=== PATIENT | female | born 1960 | race Caucasian/White ===

== ENCOUNTER 2017-07-22 19:41 | Inpatient (IN) ==
[2017-07-22] MEDS ORDERED: Ondansetron 4 MG/2 ML VIAL IVP ONE (20:19)
[2017-07-22] MEDS ORDERED: Piperacillin/Tazobactam 3.375 GM in D5% in Water (Mini-Bag+) 100 ML IVPB ONE (20:19)
[2017-07-22] MEDS ORDERED: *HR* HYDROmorphone (PF) 1 MG/ML SYRINGE IVP ONE (20:23)
--- NOTE | 2017-07-22 20:24 | Emergency Department Note ---
Disposition Clinical Impression: Nephrolithiasis, Pyelonephritis, Emphysematous pyelonephritis of left kidney, Breast lesion Disposition: Admitted As Inpatient Condition: Good General Adult HPI - General Chief complaint: ED Abdominal Pain Stated complaint: "Seen for UTI 07/21/17 Now Very Nauseated" Time Seen by Provider: 07/22/17 20:10 Source: patient, family Limitations: no limitations Nursing Notes Reviewed: Yes Vital Signs Reviewed: Yes - History of Present Illness HPI Narrative: 56-year-old female who denies any medical problems. She presented to the emergency Department yesterday due to left flank pain. She was diagnosed with pyelonephritis and was discharged home with antibiotics and nausea medication. She reports her nausea has substantially increased. She is unable to keep down her medications. She also states that she continues to have pain in the left flank. She also admits to rigors overnight. Pain Scale: 5 Consistency: constant Improves with: nothing Worsens with: nothing Associated symptoms: Reports: denies other symptoms Treatments Prior to Arrival: none - Related Data Previous Rx's Medication Instructions Recorded DiphenhydraMINE [Benadryl] 25 mg PO Q6HR PRN #20 capsule 02/21/16 methylPREDNISolone [Medrol] 4 mg PO TAPER #21 tablet 02/21/16 Amoxicillin 875 mg PO BID #20 tablet 01/28/17 Sulfamethoxazole/Trimeth DS 1 each PO BID 14 Days tablet 07/22/17 [Bactrim DS] Allergies Allergy/AdvReac Type Severity Reaction Status Date / Time No Known Allergies Allergy Verified 07/22/17 19:46 All systems ED: reviewed and negative except as stated. Constitutional: Reports: chills Cardiovascular: Denies: chest pain Respiratory: Denies: cough Gastrointestinal: Reports: nausea, vomiting Musculoskeletal: Reports: back pain Integumentary: Denies: rash Endocrine: Reports: fatigue Past Medical History - Past Medical History Medical history: Reports: no medical history Psychiatric history: Reports: no psych history LAUNDRY AID history: Reports: non-contributory - Social History Smoking Status: Never smoker Smokeless Tobacco Status: No Alcohol use: Reports: none Drug use: Reports: none Physical Exam - General Limitations: no limitations General appearance: alert, in no apparent distress - Head Head exam: atraumatic - Eye Eye exam: Present: normal appearance, PERRL - ENT ENT exam: normal exam, normal oropharynx - Neck Neck exam: Present: normal inspection - Chest Chest inspection: Present: normal inspection - Respiratory Respiratory exam: Present: normal lung sounds bilaterally. Absent: respiratory distress - Cardiovascular Cardiovascular exam: Present: regular rate, normal rhythm - Abdominal Exam Abdominal exam: Present: soft, tenderness (left abdomen and left flank). Absent : guarding, rebound - Extremities Exam Extremities exam: Present: normal inspection - Neurological Exam Neurological exam: Present: alert, oriented X3 - Psychiatric Psychiatric exam: Present: normal affect, normal mood - Skin Skin exam: Present: warm, dry Course Course Narrative: We will obtain a CT scan to rule out a septic stone and to look for abscess formation. I will empirically treat with Zosyn. CT scan shows a stone with emphysematous pyelitis. She has received zosyn and levaquin. I called urology Dr Lang and he agrees with the antibiotic choice and will accept the patient to his service. He will assume care for final management of this patient. After starting IV fluids and antibiotics her HR has improved to 97 from 110. BP is still stable. Lactate is not elevated. Vital Signs Temperature 99.2 F 07/22/17 19:46 Pulse Rate 110 07/22/17 19:46 Respiratory Rate 16 07/22/17 19:46 Blood Pressure 126/83 07/22/17 19:46 O2 Sat by Pulse Oximetry 97 07/22/17 19:46 Temperature 99.2 F 07/22/17 19:46 Pulse Rate 95 07/22/17 21:21 Respiratory Rate 16 07/22/17 21:21 Blood Pressure 121/79 07/22/17 21:21 O2 Sat by Pulse Oximetry 95 07/22/17 21:21 Oxygen Delivery Oxygen Delivery Nasal Cannula Medical Decision Making - [facility] Narrative Medical decision making narrative: Pt will need to have her left breast lesion that was identified on CT evaluated at some point as well. we informed the patient of this - Medical Records Medical records reviewed: Yes I reviewed the patient's medical records. - Lab Data Result diagrams: 07/22/17 20:34 07/22/17 20:34 Critical Care Time Critical Care Time: Yes Total Critical Care Time: 35 Attestation: Critical care time of 35 min spent in medical management of pt's condition and sepsis. consult with urology as well
[2017-07-22] MEDS ORDERED: Levofloxacin 750 MG/150 ML 750 MG/150 ML BAG IVPB ONE (20:28)
[2017-07-22] MEDS ORDERED: 0.9 % Sodium Chloride 1,000 ML IVC SCH ×2 (20:30→21:45)
--- NOTE | 2017-07-22 20:43 | Emergency Department Note ---
START Narrative - START START: I examined this patient and my medical decision-making was reviewed with the Resident Physician. I agree with the documented findings, disposition and treatment plan as described except to the extent set forth below. Patient has failed outpatient treatment for pyelonephritis. She is unable to keep her medications down that she has had profuse nausea and vomiting. Patient will need to be admitted for IV antibiotics. I do not a CT scan to evaluate for a possible infected stone as she does have a history of a kidney stone.
[2017-07-22 20:46] LABS: Basophils % 0.1 %; Hematocrit 36.2 % (35.3-44.9); Hemoglobin 11.3 g/dL (11.5-15.4); Immature Granulocytes % 0.8 % (0-4); Lymphocytes # 1.5 K/mcL (0.6-4.6); Lymphocytes % 8.9 %; Mean Corpuscular HGB Conc 31.2 g/dL (31.6-35.5); Mean Corpuscular Hemoglobin 27.1 pg (28.0-33.3); Mean Corpuscular Volume 86.8 fL (83.0-100.0); Monocytes % 5.8 %; Neutrophils # 14.5 K/mcL (1.6-8.9); Platelet Count 251 K/mcL (140-400); Red Blood Count 4.17 M/mcL (3.82-4.97); Red Cell Distribution Width 15.3 % (11.5-14.5); Segmented Neutrophils % 84.4 %
[2017-07-22 21:01] LABS: Alanine Aminotransferase 26 Units/L (0-55); Albumin 3.3 g/dL (3.5-5.0); Albumin/Globulin Ratio 0.7 (1.1-2.2); Alkaline Phosphatase 113 Units/L (38-126); Aspartate Amino Transferase 26 Units/L (5-34); BUN/Creatinine Ratio 20 (6-26); Bilirubin,Direct 0.4 mg/dL (0.0-0.5); Bilirubin,Indirect 0.4 mg/dL (0.0-1.2); Blood Urea Nitrogen 17 mg/dL (7-20); Calcium 9.2 mg/dL (8.6-10.8); Carbon Dioxide 28 mEq/L (19-29); Chloride 101 mEq/L (98-109); Globulin 4.9 g/dL (2.4-3.5); Glucose 139 mg/dL (70-99); Osmolality,Calculated 288 (280-300); Potassium 3.9 mEq/L (3.5-4.5); Sodium 137 mEq/L (136-145); Total Protein 8.2 g/dL (6.0-8.3); eGFR For African Americans > 60 (> 60); eGFR For Non-African Americans > 60 (> 60)
[2017-07-22 21:02] LABS: Bilirubin,Total 0.8 mg/dL (0.2-1.2); Lipase < 10 Units/L (8-78)
[2017-07-22] MEDS ORDERED: *HR* Promethazine 25 MG/ML VIAL IVP PRN (21:41)
[2017-07-22] MEDS ORDERED: *HR* Morphine 2 MG/ML SYRINGE IVP PRN (21:41)
[2017-07-22] MEDS ORDERED: Naloxone 0.4 MG/ML INJ IVP PRN (21:41)
[2017-07-22] MEDS ORDERED: Ondansetron 4 MG/2 ML VIAL IVP PRN (21:41)
[2017-07-22] MEDS ORDERED: Ketorolac 15 MG/ML VIAL IVP PRN (21:41)
[2017-07-22] MEDS ORDERED: Piperacillin/Tazobactam 3.375 GM in D5% in Water 100 ML IVPB ONE (21:47)
--- NOTE | 2017-07-22 21:51 | Urology History & Physical ---
Date of Encounter: 07/22/17 Time of Encounter: 21:49 Assessment and Plan (1) Ureteral stone with hydronephrosis Current Visit: Yes Status: Acute Patient requires cystoscopy and ureteral stent placement along with culture specific antibiotics. Stent will be placed promptly during this hospital admission. We'll watch patient after the stent is placed to verify stability. She will require staged outpatient management of the stone. Blood and urine culture sent. (2) Emphysematous pyelonephritis of left kidney Current Visit: Yes Status: Acute Should resolve with stent placement and appropriate antibiotics History of Present Illness Chief complaint: Pain left flank pain HPI: Ms. Kauffman is a 56 year old female presents the emergency room with acute left flank pain and feeling of unwell. CT scan reveals Re- demonstration of obstructing stone within the left proximal collecting system at the ureteropelvic junction which today measures 1.4 cm. There is surrounding perinephric stranding. Additionally, a few locules of gas are identified within the proximal collecting system on the left compatible with emphysematous pyelitis. Past Med Surg Social Fam HX - Past Medical History Medical history: no medical history Psychiatric history: no psych history - Social History Smoking Status: Never smoker Smokeless Tobacco Status: No Alcohol use: none Drug use: none Medications and Allergies Sulfamethoxazole/Trimeth DS [Bactrim DS] 1 each PO BID 14 Days tablet 07/22/17 [Rx] 3 Allergy/AdvReac Type Severity Reaction Status Date / Time No Known Allergies Allergy Verified 07/22/17 21:37 Review of Systems - Constitutional fatigue, fever(s), malaise - EENT Nose, mouth and throat: no dizziness - Cardiovascular no chest pain - Respiratory no cough - Gastrointestinal abdominal pain, nausea - Genitourinary Genitourinary: flank pain - Musculoskeletal back pain - Integumentary erythema - Neurological no confusion - Psychiatric no anxiety - Hematologic/Lymphatic no easy bleeding - Allergic/Immunologic no throat swelling Exam Initial Vital Signs Temp Pulse Resp BP Pulse Ox 99.2 F 110 16 126/83 97 07/22/17 19:46 07/22/17 19:46 07/22/17 19:46 07/22/17 19:46 07/22/17 19:46 - General physical appearance Present: well developed, no distress - Eyes Present: PERRL - ENT Present: normal nares - Neck Present: no masses - Respiratory Present: normal respiratory effort - Cardiovascular Cardiovascular exam IM: RRR - Abdomen Abdomen: Present: soft - Integumentary Present: no rash - Neurologic Present: normal coordination. Absent: disoriented, confused - Musculoskeletal Present: normal gait - Additional Findings no CVA tenderness Urology Results - Labs 07/22/17 20:34 07/22/17 20:34 Abnormal lab results WBC 17.2 K/mcL (4.3-11.1) H 07/22/17 20:34 Hgb 11.3 g/dL (11.5-15.4) L 07/22/17 20:34 MCH 27.1 pg (28.0-33.3) L 07/22/17 20:34 MCHC 31.2 g/dL (31.6-35.5) L 07/22/17 20:34 RDW 15.3 % (11.5-14.5) H 07/22/17 20:34 Neutrophils # 14.5 K/mcL (1.6-8.9) H 07/22/17 20:34 Glucose 139 mg/dL (70-99) H 07/22/17 20:34 Albumin 3.3 g/dL (3.5-5.0) L 07/22/17 20:34 Globulin 4.9 g/dL (2.4-3.5) H 07/22/17 20:34 Albumin/Globulin Ratio 0.7 (1.1-2.2) L 07/22/17 20:34 All other labs normal.
[2017-07-22] MEDS ORDERED: Piperacillin/Tazobactam 3.375 GM in D5% in Water 50 ML IVPB ONE (22:15)
[2017-07-23] MEDS: *HR* HYDROcodone/Acet 5/325 mg TABLET PO SCH ×4 (00:35→12:00)
[2017-07-23] MEDS ORDERED: Piperacillin/Tazobactam 3.375 GM in D5% in Water 50 ML IVPB ONE (03:00)
[2017-07-23 03:50] LABS: BUN/Creatinine Ratio 18 (6-26); Blood Urea Nitrogen 15 mg/dL (7-20); Calcium 8.6 mg/dL (8.6-10.8); Carbon Dioxide 27 mEq/L (19-29); Chloride 102 mEq/L (98-109); Glucose 144 mg/dL (70-99); Osmolality,Calculated 285 (280-300); Potassium 3.9 mEq/L (3.5-4.5); Sodium 136 mEq/L (136-145); eGFR For African Americans > 60 (> 60); eGFR For Non-African Americans > 60 (> 60)
[2017-07-23 04:04] LABS: Basophils % 0.1 %; Eosinophils % 0.1 %; Hematocrit 33.6 % (35.3-44.9); Hemoglobin 10.3 g/dL (11.5-15.4); Immature Granulocytes % 0.6 % (0-4); Lymphocytes # 1.6 K/mcL (0.6-4.6); Lymphocytes % 11.4 %; Mean Corpuscular HGB Conc 30.7 g/dL (31.6-35.5); Mean Platelet Volume 10.3 fL (9.4-12.4); Monocytes # 0.8 K/mcL (0.0-1.3); Monocytes % 5.5 %; Neutrophils # 11.7 K/mcL (1.6-8.9); Platelet Count 212 K/mcL (140-400); Red Blood Count 3.82 M/mcL (3.82-4.97); Red Cell Distribution Width 15.6 % (11.5-14.5); Segmented Neutrophils % 82.3 %
[2017-07-23] MEDS ORDERED: cefTRIAXone 1,000 MG in Water for inj. (sterile) 10 ML IVP SCH (09:00)
[2017-07-23] MEDS ORDERED: Dexamethasone 4 MG/ML VIAL ONE (15:50)
[2017-07-23] MEDS ORDERED: *HR* Propofol 200 MG/20 ML VIAL IVP ONE (15:50)
[2017-07-23] MEDS ORDERED: Lidocaine -MPF 2% 2 ML VIAL ONE (15:50)
[2017-07-23] MEDS ORDERED: *HR* FentaNYL (PF) 100 MCG/2 ML VIAL ONE (15:50)
[2017-07-23] MEDS ORDERED: Ondansetron 4 MG/2 ML VIAL ONE (15:50)
[2017-07-23] MEDS ORDERED: *HR* Promethazine 25 MG/ML VIAL IVP PRN ×3 (15:52→17:20)
[2017-07-23] MEDS ORDERED: *HR* HYDROmorphone (PF) 1 MG/ML SYRINGE IVP PRN (15:52)
--- NOTE | 2017-07-23 16:02 | Anesthesia Evaluation PreOp ---
Date of Encounter: 07/23/17 Time of Encounter: 16:00 - Past History Planned Operation: Left retrograde pyelogram, cystoscopy Cardiac History: Denies any Significant Hx Pulmonary History: Denies Any Significant HX BUSINESS COORDINATOR History: Denies Any Significant HX Other Medical History: Renal (stones) Anesthesia History: No Prior Anesthetic Complications Alcohol Use: none Drug use: none Medications and Allergies Sulfamethoxazole/Trimeth DS [Bactrim DS] 1 each PO BID 14 Days tablet 07/22/17 [Rx] 3 Allergy/AdvReac Type Severity Reaction Status Date / Time No Known Allergies Allergy Verified 07/22/17 21:37 - Meds/Allergy Pre-op Review Medications Reviewed: Yes Allergies Reviewed: Yes Beta Blockers on Current Med List: No Anesthesia Results - Labs 07/23/17 03:02 07/23/17 03:02 Anesthesia Exam Last Vital Signs Temp 98.0 F 07/23/17 10:51 Pulse 95 07/23/17 15:42 Resp 16 07/23/17 15:42 BP 106/67 07/23/17 15:42 Pulse Ox 94 07/23/17 15:42 Weight: 104 kg NPO (# of Hours): > 8 hrs - HEENT Pupil (Motor): Pupils equal, EOMI Mallampati: III Teeth: Edentulous Oral Opening: Greater than 3 - BUSINESS COORDINATOR LOC: Oriented - Cardiac Rhythm: Regular Murmur: None - Pulmonary Breath Sounds: bilateral Clear Respiratory Effort: Symmetrical Anesthesia Assess/Plan ASA Score: 2 Modified Harrison Scale for Level of Consciousness: Cooperative, oriented, and tranquil Anesthetic Plan: General Monitoring Plan: Standard Monitors Recovery Plan: PACU
[2017-07-23] MEDS ORDERED: 0.9 % Sodium Chloride 1,000 ML IVC SCH ×2 (16:22→17:20)
[2017-07-23] MEDS ORDERED: *HR* Morphine 2 MG/ML SYRINGE IVP PRN ×2 (16:22→17:20)
[2017-07-23] MEDS ORDERED: Ondansetron 4 MG/2 ML VIAL IVP PRN ×2 (16:22→17:20)
[2017-07-23] MEDS ORDERED: Naloxone 0.4 MG/ML INJ IVP PRN ×2 (16:22→17:20)
[2017-07-23] MEDS ORDERED: Ketorolac 15 MG/ML VIAL IVP PRN ×2 (16:22→17:20)
--- NOTE | 2017-07-23 16:35 | Operative Note ---
Date of procedure: 07/23/17 Pre-op diagnosis: left UPJ stone and UTI Post-op diagnosis: same Procedure: cystoscopy left retrograde pyelogram left JJ stent Anesthesia: GETA Surgeon: Marcos Lang Estimated blood loss (cc): 0 Specimen: none Condition: stable Disposition: PACU Procedure in Detail: PROCEDURE IN DETAIL: Patient was taken back to the operating room, positioned supine on the operating table. Anesthesia was applied without complication. They were moved into dorsal lithotomy. Careful attention was maintained to cushion all pressure points for patient's safety. They were prepped and draped in sterile fashion. Time-out was performed with the proper patient and procedure. A 21-Azerbaijani rigid cystoscope was inserted into the bladder without difficulty. Systematic examination of bladder revealed no abnormalities. She did have a large cystocele. Left ureteral orifice was cannulated using a 5 Azerbaijani ureteral catheter. Large filling defect in the renal pelvis near the UPJ was noted. Zip wire was placed and a 6 x 26 stent was placed without complication. Minimal purulence was seen draining from the left kidney. Bladder was drained.
[2017-07-23] MEDS ORDERED: *HR* HYDROcodone/Acet 5/325 mg TABLET PO SCH (20:00)
[2017-07-23] MEDS ORDERED: *HR* HYDROcodone/Acet 5/325 mg TABLET PO PRN (20:00)
--- NOTE | 2017-07-24 06:36 | Discharge Summary ---
Date of Encounter: 07/24/17 Time of Encounter: 06:34 - Discharge Diagnosis (1) Ureteral stone with hydronephrosis Priority: Primary Status: Resolved (2) Emphysematous pyelonephritis of left kidney Priority: Secondary Status: Resolved - Discharge Medications Prescriptions: HYDROcodone/Acet 5/325 mg [Badin 5-325 mg] 1 tab PO Q4HR PRN #15 tablet PRN Reason: MODERATE PAIN Levofloxacin [Levaquin] 500 mg PO DAILY #10 tablet Phenazopyridine [Pyridium] 200 mg PO TID PRN #20 tablet PRN Reason: See Comments Home Medications: HYDROcodone/Acet 5/325 mg [Badin 5-325 mg] 1 tab PO Q4HR PRN #15 tablet [Rx] Levofloxacin [Levaquin] 500 mg PO DAILY #10 tablet 07/24/17 [Rx] Phenazopyridine [Pyridium] 200 mg PO TID PRN #20 tablet 07/24/17 [Rx] Allergies/Adverse Reactions: 3 Allergy/AdvReac Type Severity Reaction Status Date / Time No Known Allergies Allergy Verified 07/22/17 21:37 Labs on day of discharge: Labs from last 24 hours 07/23/17 17:28 POC Glucose 118 H - Impressions ITS Impressions Retrograde Pyelogram 07/23/17 00:00 IMPRESSION: Intraprocedural fluoroscopic spot images as above. See separate procedure report for more information. D/ / 07/23/2017 16:48:43 Jeremiah Xavier MD / Olena Granados Interpreting Provider: Jeremiah Xavier MD Date of admission: 07/22/17 21:41 Primary care physician: PCP NONE Discharging clinician: Marcos Lang Anticipated date of discharge: 07/24/17 - Patient Status Disposition: Home, Self-Care Condition: Good Functional capacity at discharge: independent ambulation Overall status at discharge: patient is progressing back to baseline - Discharge Instructions Follow Up With: NONE,PCP [Primary Care Provider] - Marcos Lang MD [Partnered Physician] - (my office will call for definative stone surgery ) Additional Instructions: No activity restrictions Okay to drive off of pain medication Expect stent discomfort including urgency, frequency, burning on urination, late blood in the urine, flank discomfort My office will call to schedule follow-up surgery for the kidney stone Call if fever over 101 that is not controlled with Tylenol or Motrin - Diet and Activity Activity: other Diet: advance to your usual diet - Hospital Course Hospital course: Ms. Kauffman is a 56 year old female admitted with an obstructing ureteropelvic junction stone and gas in the collecting system. Status post stent placement yesterday afternoon. Overnight she has done well. Mild stent discomfort. No fever. Stable vital signs. No acute illness. Plan for discharge. Culture still pending but will start Levaquin at discharge. I will follow cultures to verify this is the correct antibiotic. My office will contact the patient to plan definitive stone treatment in the near future - Time Spent with Patient Total time spent providing and/or coordinating discharge services: Less than 30 minutes Exam Initial Vital Signs Temp Pulse Resp BP Pulse Ox 99.2 F 110 16 126/83 97 07/22/17 19:46 07/22/17 19:46 07/22/17 19:46 07/22/17 19:46 07/22/17 19:46 - General physical appearance Present: well developed, no distress - VTE Documentation of Mechanical Device: Intermittent pneumatic compression device
[2017-07-24 06:51] VITALS: BP 122/79
[2017-07-24] MEDS ORDERED: cefTRIAXone 1,000 MG in Water for inj. (sterile) 10 ML IVP SCH (09:00)
== END 2017-07-24 15:50 | disposition home or self-care (01) | DRG 443 ==
LOC: 3ANU 19:41 → EMEROO 19:41 → 3ANU 22:02
PROVIDERS: ADMIT Urology; ATTEND Urology

== ENCOUNTER 2017-08-22 15:27 | Observation (INO) ==
[2017-08-22] MEDS ORDERED: *HR* FentaNYL (PF) 100 MCG/2 ML VIAL IVP ONE (15:39)
[2017-08-22] MEDS ORDERED: Ondansetron 4 MG/2 ML VIAL IVP ONE (15:39)
[2017-08-22] MEDS ORDERED: 0.9 % Sodium Chloride 1,000 ML IVC ONE (15:39)
--- NOTE | 2017-08-22 15:42 | Emergency Department Note ---
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 Disposition: Admitted As Inpatient Condition: Undetermined Forms: ED Satisfaction Letter Time of Disposition: 17:37 General Adult HPI - General Chief complaint: ED Nausea/Vomiting/Diarrhea Stated complaint: "pain in left side n/v" Time Seen by Provider: 08/22/17 15:34 Source: patient Mode of arrival: ambulatory Limitations: no limitations Nursing Notes Reviewed: Yes Vital Signs Reviewed: Yes - History of Present Illness HPI Narrative: 56-year-old female with history of urolithiasis with recent lithotripsy and emphysematous pyelonephritis arrives to [facility] [place] emergency department after finishing a course of antibiotics roughly 5 days ago. She returns to the emergency room complaining of left flank pain that started earlier today. The patient states she is having some nausea with vomiting as well as a small amount of diarrhea. The patient states this feels very similar to when she was diagnosed with the emphysematous pyelonephritis. She denies any other complaints at this time. The patient is resting comfortably in the room with no signs of tachycardia, hypotension, or fever. All palpation of the left flank she is very tender. She has no other tenderness noted. She finished a course of levofloxacin which microbiology revealed the bacteria was susceptible for. Onset (ago): hour(s) (5) Location: left (flank) Radiation: flank Pain Severity: moderate, similar to prior episodes Pain Scale: 4 Quality: aching Consistency: constant Improves with: nothing Worsens with: nothing Associated symptoms: Reports: denies other symptoms Treatments Prior to Arrival: none - Related Data Previous Rx's Medication Instructions Recorded HYDROcodone/Acet 5/325 mg [[place] 1 tab PO Q4H PRN #10 tab 08/09/17 5-325 mg] Levofloxacin [Levaquin] 500 mg PO DAILY #5 tablet 08/09/17 Allergies Allergy/AdvReac Type Severity Reaction Status Date / Time No Known Allergies Allergy Verified 08/22/17 15:31 All systems ED: reviewed and negative except as stated. Constitutional: Denies: fever, chills, weakness ENT ED: Denies: congestion Cardiovascular: Denies: chest pain Respiratory: Denies: dyspnea Gastrointestinal: Reports: abdominal pain, nausea, vomiting, diarrhea. Denies: constipation, hematemesis, melena, hematochezia Genitourinary: Denies: urgency, dysuria Musculoskeletal: Denies: back pain, neck pain, myalgia Integumentary: Denies: rash Neurological: Denies: headache Past Medical History - Past Medical History Attestation: Yes The following information was validated with the patient. Source: patient Medical history: Reports: no medical history Surgical history: Reports: cholecystectomy, hysterectomy Psychiatric history: Reports: no psych history BOOM MAN history: Reports: non-contributory - Social History Smoking Status: Never smoker Smokeless Tobacco Status: No Alcohol use: Reports: none Drug use: Reports: none Physical Exam - General Limitations: no limitations General appearance: alert, in no apparent distress - Head Head exam: atraumatic, normocephalic, normal inspection - Eye Eye exam: Present: normal appearance, PERRL, EOMI - ENT ENT exam: normal exam, normal oropharynx, mucous membranes moist - Neck Neck exam: Present: normal inspection, full ROM, trachea midline - Chest Chest inspection: Present: normal inspection, symmetric chest wall rise - Respiratory Respiratory exam: Present: normal lung sounds bilaterally - Cardiovascular Cardiovascular exam: Present: regular rate, normal rhythm, normal heart sounds - Abdominal Exam Abdominal exam: Present: soft, Non-Tender. Absent: tenderness, distention, guarding, rebound, rigidity - Extremities Exam Extremities exam: Present: normal inspection, full ROM. Absent: tenderness, pedal edema - Back Exam Back exam: Present: full ROM, CVA tenderness (L) - Neurological Exam Neurological exam: Present: alert, oriented X3 Course Vital Signs Temperature 97.6 F 08/22/17 15:28 Pulse Rate 94 08/22/17 15:28 Respiratory Rate 16 08/22/17 15:28 Blood Pressure 153/97 08/22/17 15:28 O2 Sat by Pulse Oximetry 99 08/22/17 15:28 Temperature 97.6 F 08/22/17 15:28 Pulse Rate 94 08/22/17 15:28 Respiratory Rate 16 08/22/17 15:28 Blood Pressure 153/97 08/22/17 15:28 O2 Sat by Pulse Oximetry 99 08/22/17 15:28 Oxygen Delivery Oxygen Delivery Room Air Medical Decision Making - MDM Narrative Medical decision making narrative: Workup here in the emergency department demonstrates moderate hydronephrosis on the left with a 0.5 x 1 cm stone in the left UPJ. There are no signs of infection in her urine but given her past history and the pain control here in the emergency department, we will admit her to the urology group. I spoke with Dr. Hector in urology who stated that she would be okay to admit to his service. She agrees to plan. She states that she did not think she would be able to go home due to the amount of pain that she has experienced previous to receiving IV analgesics. - Medical Records Medical records reviewed: Yes I reviewed the patient's medical records. - Lab Data Lab results reviewed: Yes I reviewed the patient's lab results. Result diagrams: 08/22/17 15:51 08/22/17 15:51 Lab Results 08/22/17 08/22/17 08/22/17 Range/Units 15:51 15:51 16:26 WBC 9.6 (4.3-11.1) K/mcL RBC 4.32 (3.82-4.97) M/mcL Hgb 11.7 (11.5-15.4) g/dL Hct 36.9 (35.3-44.9) % MCV 85.4 (83.0-100.0) fL MCH 27.1 L (28.0-33.3) pg MCHC 31.7 (31.6-35.5) g/dL RDW 14.9 H (11.5-14.5) % Plt Count 210 (140-400) K/mcL MPV 10.0 (9.4-12.4) fL Immature Gran % 0.9 (0-4) % Seg Neutrophils % 76.3 % Lymphocytes % 18.6 % Monocytes % 2.9 % Eosinophils % 1.1 % Basophils % 0.2 % Neutrophils # 7.3 (1.6-8.9) K/mcL Lymphocytes # 1.8 (0.6-4.6) K/mcL Monocytes # 0.3 (0.0-1.3) K/mcL Eosinophils # 0.1 (0.0-0.6) K/mcL Basophils # 0.0 (0.0-0.2) K/mcL Sodium 141 (136-145) mEq/L Potassium 4.1 (3.5-4.5) mEq/L Chloride 102 (98-109) mEq/L Carbon Dioxide 30 H (19-29) mEq/L BUN 11 (7-20) mg/dL Creatinine 0.81 (0.57-1.11) mg/dL Est GFR ( Amer) > 60 (> 60) Est GFR (Non-Af Amer) > 60 (> 60) BUN/Creatinine Ratio 14 (6-26) Glucose 152 H (70-99) mg/dL Calculated Osmolality 294 (280-300) Calcium 9.7 (8.6-10.8) mg/dL Total Bilirubin 0.6 (0.2-1.2) mg/dL AST 24 (5-34) Units/L ALT 27 (0-55) Units/L Alkaline Phosphatase 97 (38-126) Units/L Serum Total Protein 8.0 (6.0-8.3) g/dL Albumin 3.6 (3.5-5.0) g/dL Globulin 4.4 H (2.4-3.5) g/dL Albumin/Globulin Ratio 0.8 L (1.1-2.2) Lipase 19 (8-78) Units/L Urine Color Yellow (Yellow) Urine Clarity Slightly Hazy (Clear) Urine pH 5.5 (5.0-8.0) pH Units Ur Specific [place] 1.021 (1.010-1.025) Urine Protein 30 H (Neg-Trace) mg/dL Urine Glucose (UA) Normal (Normal) mg/dL Urine Ketones Negative (Negative) mg/dL Urine Blood Small H (Negative) Urine Nitrite Negative (Negative) Urine Bilirubin Negative (Negative) Urine Urobilinogen Normal (Normal) mg/dL Ur Leukocyte Esterase Moderate H (Negative) Urine Microscopic RBC 0-3 (0-3) per hpf Urine Microscopic WBC 30-50 H (0-3) per hpf Ur Squamous Epith Cells Many H (None-Few) per lpf Urine Bacteria None Seen (None-Few) per hpf Hyaline Casts Few (None-Few) per lpf Ur Culture Indicated? NO (NO) - Radiology Data Radiology results reviewed: Yes I reviewed the patient's radiology results.
[2017-08-22 15:58] LABS: Basophils % 0.2 %; Eosinophils % 1.1 %; Hematocrit 36.9 % (35.3-44.9); Hemoglobin 11.7 g/dL (11.5-15.4); Immature Granulocytes % 0.9 % (0-4); Lymphocytes % 18.6 %; Mean Corpuscular HGB Conc 31.7 g/dL (31.6-35.5); Mean Corpuscular Hemoglobin 27.1 pg (28.0-33.3); Mean Corpuscular Volume 85.4 fL (83.0-100.0); Monocytes % 2.9 %; Platelet Count 210 K/mcL (140-400); Red Blood Count 4.32 M/mcL (3.82-4.97); Red Cell Distribution Width 14.9 % (11.5-14.5); Segmented Neutrophils % 76.3 %
[2017-08-22 15:59] LABS: Eosinophils # 0.1 K/mcL (0.0-0.6); Lymphocytes # 1.8 K/mcL (0.6-4.6); Monocytes # 0.3 K/mcL (0.0-1.3); Neutrophils # 7.3 K/mcL (1.6-8.9)
[2017-08-22 16:14] LABS: Alanine Aminotransferase 27 Units/L (0-55); Albumin 3.6 g/dL (3.5-5.0); Albumin/Globulin Ratio 0.8 (1.1-2.2); Alkaline Phosphatase 97 Units/L (38-126); Aspartate Amino Transferase 24 Units/L (5-34); BUN/Creatinine Ratio 14 (6-26); Bilirubin,Total 0.6 mg/dL (0.2-1.2); Blood Urea Nitrogen 11 mg/dL (7-20); Calcium 9.7 mg/dL (8.6-10.8); Carbon Dioxide 30 mEq/L (19-29); Chloride 102 mEq/L (98-109); Globulin 4.4 g/dL (2.4-3.5); Glucose 152 mg/dL (70-99); Lipase 19 Units/L (8-78); Osmolality,Calculated 294 (280-300); Potassium 4.1 mEq/L (3.5-4.5); Sodium 141 mEq/L (136-145); eGFR For African Americans > 60 (> 60); eGFR For Non-African Americans > 60 (> 60)
[2017-08-22 16:34] LABS: Bilirubin,Urine Negative (Negative); Blood,Urine Small (Negative); Clarity,Urine Slightly Hazy (Clear); Color,Urine Yellow (Yellow); Glucose,Urine (UA) Normal (Normal); Ketones,Urine Negative (Negative); Leukocyte Esterase,Urine Moderate (Negative); Nitrite,Urine Negative (Negative); PH,Urine 5.5 pH Units (5.0-8.0); Protein,Urine 30 mg/dL (Neg-Trace); Specific Gravity,Urine 1.021 (1.010-1.025); Urobilinogen,Urine Normal (Normal)
[2017-08-22] MEDS ORDERED: Ketorolac 15 MG/ML VIAL IVP ONE (16:44)
[2017-08-22 16:50] LABS: Bacteria,Urine None Seen per hpf (None-Few); Hyaline Casts,Urine Few per lpf (None-Few); RBC,Urine 0-3 per hpf (0-3); Squamous Epithelial Cell,Urine Many per lpf (None-Few); WBC,Urine 30-50 per hpf (0-3)
--- NOTE | 2017-08-22 17:07 | Emergency Department Note ---
START Narrative - START START: I examined this patient and my medical decision-making was reviewed with the Resident Physician. I agree with the documented findings, disposition and treatment plan as described except to the extent set forth below. 56 year old female with history of kidney stones and left flank pain that is radiating around ot her groin and states that this feels simliar to her stones in the past. WE will do a abdominal pain workup with CT scan and IV therapy for symptomatic relef.
[2017-08-22] MEDS ORDERED: *HR* HYDROmorphone (PF) 1 MG/ML SYRINGE IVP ONE ×3 (17:55→17:56)
[2017-08-22] MEDS ORDERED: *HR* Promethazine 25 MG/ML VIAL IVP PRN (19:02)
[2017-08-22] MEDS ORDERED: *HR* Morphine 2 MG/ML SYRINGE IVP PRN (19:02)
[2017-08-22] MEDS ORDERED: *HR* HYDROcodone/Acet 5/325 mg TABLET PO PRN (19:02)
[2017-08-22] MEDS ORDERED: *HR* HYDROmorphone (PF) 1 MG/ML SYRINGE IVP PRN (19:02)
[2017-08-22] MEDS ORDERED: Naloxone 0.4 MG/ML INJ IVP PRN (19:02)
[2017-08-22] MEDS: Ringers Solution, Lactated 1,000 ML IVC SCH (23:27)
[2017-08-23 05:41] LABS: Basophils % 0.2 %; Eosinophils % 0.3 %; Hematocrit 32.6 % (35.3-44.9); Hemoglobin 10.3 g/dL (11.5-15.4); Immature Granulocytes % 0.6 % (0-4); Lymphocytes # 2.4 K/mcL (0.6-4.6); Lymphocytes % 19.5 %; Mean Corpuscular HGB Conc 31.6 g/dL (31.6-35.5); Mean Corpuscular Volume 85.6 fL (83.0-100.0); Mean Platelet Volume 10.6 fL (9.4-12.4); Monocytes # 0.6 K/mcL (0.0-1.3); Monocytes % 5.1 %; Platelet Count 205 K/mcL (140-400); Red Blood Count 3.81 M/mcL (3.82-4.97); Red Cell Distribution Width 15.3 % (11.5-14.5); Segmented Neutrophils % 74.3 %
[2017-08-23 06:07] LABS: BUN/Creatinine Ratio 13 (6-26); Blood Urea Nitrogen 10 mg/dL (7-20); Calcium 8.8 mg/dL (8.6-10.8); Carbon Dioxide 29 mEq/L (19-29); Chloride 104 mEq/L (98-109); Glucose 119 mg/dL (70-99); Osmolality,Calculated 290 (280-300); Sodium 140 mEq/L (136-145); eGFR For African Americans > 60 (> 60); eGFR For Non-African Americans > 60 (> 60)
[2017-08-23] MEDS: Ringers Solution, Lactated 1,000 ML IVC SCH ×3 (06:51→22:51)
[2017-08-23] MEDS ORDERED: Ketorolac 15 MG/ML VIAL IVP PRN (07:44)
[2017-08-23] MEDS ORDERED: 0.9 % Sodium Chloride 1,000 ML IVC SCH (07:45)
[2017-08-23] MEDS ORDERED: *HR* HYDROcodone/Acet 5/325 mg TABLET PO PRN (07:50)
--- NOTE | 2017-08-23 08:10 | Urology History & Physical ---
Date of Encounter: 08/23/17 Time of Encounter: 08:07 Assessment and Plan (1) Ureteral stone with hydronephrosis Current Visit: No Status: Acute I reviewed the CT scan and it appears there is a tiny fragment and debris near the left UPJ with hydronephrosis. she feels much better and vitals are stable. no fever. after discussion we have elected to observe and recheck CT scan in AM. hopefully the debris will pass and avoid her needing a ureteral stent. she understands that this is still possible. rocephin is the appropriate ABX for her recent infection. all questions answered. History of Present Illness Chief complaint: flank pain HPI: Ms. Kauffman is a 56 year old female s/p ESWL with stent removal. prior stone was associated with air in collecting system. was doing well but presented with Nausea and pain. admitted bc of CT findings and symptoms. feels much better this AM Past Med Surg Social Fam HX - Past Medical History Medical history: no medical history Psychiatric history: no psych history - Past Surgical History Surgical History: cholecystectomy, hysterectomy - Social History Smoking Status: Never smoker Smokeless Tobacco Status: No Alcohol use: none Drug use: none - Family History Father Living Status: Cause of : Natural causes Hx Family Cancer: Yes Medications and Allergies No Known Home Drugs 08/23/17 [History] 3 Allergy/AdvReac Type Severity Reaction Status Date / Time No Known Allergies Allergy Verified 08/22/17 15:31 Review of Systems - Constitutional fatigue, no fever(s) - EENT Nose, mouth and throat: no dizziness - Cardiovascular no chest pain - Gastrointestinal abdominal pain, nausea - Genitourinary Genitourinary: flank pain, no dysuria - Musculoskeletal back pain - Integumentary no erythema - Neurological no confusion - Psychiatric no anxiety - Hematologic/Lymphatic no easy bleeding - Allergic/Immunologic no throat swelling Exam Initial Vital Signs Temp Pulse Resp BP Pulse Ox 97.6 F 94 16 153/97 99 08/22/17 15:28 08/22/17 15:28 08/22/17 15:28 08/22/17 15:28 08/22/17 15:28 - General physical appearance Present: well developed, no distress - Eyes Present: PERRL - ENT Present: normal nares - Neck Present: no masses - Respiratory Present: normal respiratory effort - Cardiovascular Cardiovascular exam IM: RRR - Abdomen Abdomen: Present: soft - Genitourinary Present: normal external genitalia - Rectum Rectum: Present: normal sphincter tone - Integumentary Present: no rash - Neurologic Present: normal coordination. Absent: disoriented, confused Urology Results - Labs 08/23/17 05:13 08/23/17 05:13 Abnormal lab results WBC 12.1 K/mcL (4.3-11.1) H 08/23/17 05:13 RBC 3.81 M/mcL (3.82-4.97) L 08/23/17 05:13 Hgb 10.3 g/dL (11.5-15.4) L 08/23/17 05:13 Hct 32.6 % (35.3-44.9) L 08/23/17 05:13 MCH 27.0 pg (28.0-33.3) L 08/23/17 05:13 RDW 15.3 % (11.5-14.5) H 08/23/17 05:13 Neutrophils # 9.0 K/mcL (1.6-8.9) H 08/23/17 05:13 Glucose 119 mg/dL (70-99) H 08/23/17 05:13 Globulin 4.4 g/dL (2.4-3.5) H 08/22/17 15:51 Albumin/Globulin Ratio 0.8 (1.1-2.2) L 08/22/17 15:51 Urine Protein 30 mg/dL (Neg-Trace) H 08/22/17 16:26 Urine Blood Small (Negative) H 08/22/17 16:26 Ur Leukocyte Esterase Moderate (Negative) H 08/22/17 16:26 Urine Microscopic WBC 30-50 per hpf (0-3) H 08/22/17 16:26 Ur Squamous Epith Cells Many per lpf (None-Few) H 08/22/17 16:26 Diabetes panel 08/23/17 Range/Units 05:13 Sodium 140 (136-145) mEq/L Potassium 4.0 (3.5-4.5) mEq/L Chloride 104 (98-109) mEq/L Carbon Dioxide 29 (19-29) mEq/L BUN 10 (7-20) mg/dL Creatinine 0.77 (0.57-1.11) mg/dL Glucose 119 H (70-99) mg/dL Calcium 8.8 (8.6-10.8) mg/dL Calcium panel 08/23/17 Range/Units 05:13 Calcium 8.8 (8.6-10.8) mg/dL Pituitary panel 08/23/17 Range/Units 05:13 Sodium 140 (136-145) mEq/L Potassium 4.0 (3.5-4.5) mEq/L Chloride 104 (98-109) mEq/L Carbon Dioxide 29 (19-29) mEq/L BUN 10 (7-20) mg/dL Creatinine 0.77 (0.57-1.11) mg/dL Glucose 119 H (70-99) mg/dL Calcium 8.8 (8.6-10.8) mg/dL Adrenal panel 08/23/17 Range/Units 05:13 Sodium 140 (136-145) mEq/L Potassium 4.0 (3.5-4.5) mEq/L Chloride 104 (98-109) mEq/L Carbon Dioxide 29 (19-29) mEq/L BUN 10 (7-20) mg/dL Creatinine 0.77 (0.57-1.11) mg/dL Glucose 119 H (70-99) mg/dL Calcium 8.8 (8.6-10.8) mg/dL All other labs normal. - VTE Documentation of Mechanical Device: Intermittent pneumatic compression device
[2017-08-23] MEDS: cefTRIAXone 1,000 MG in Water for inj. (sterile) 10 ML IVP SCH (10:11)
[2017-08-24] MEDS: Ringers Solution, Lactated 1,000 ML IVC SCH (05:20)
--- NOTE | 2017-08-24 06:44 | Discharge Summary ---
Date of Encounter: 08/24/17 Time of Encounter: 06:41 - Discharge Diagnosis (1) Hydronephrosis Priority: Primary Status: Acute Qualifiers: Hydronephrosis type: with ureteropelvic junction obstruction Qualified Code (s): Q62.11 - Congenital occlusion of ureteropelvic junction - Discharge Medications Prescriptions: HYDROcodone/Acet 5/325 mg [Hickman 5-325 mg] 2 tab PO Q6HR PRN #8 tablet PRN Reason: mild/mod after toradol Home Medications: HYDROcodone/Acet 5/325 mg [Hickman 5-325 mg] 2 tab PO Q6HR PRN #8 tablet 08/24/17 [Rx] Allergies/Adverse Reactions: 3 Allergy/AdvReac Type Severity Reaction Status Date / Time No Known Allergies Allergy Verified 08/22/17 15:31 Date of admission: 08/22/17 18:04 Primary care physician: PCP NONE Discharging clinician: Carlos Hector Anticipated date of discharge: 08/24/17 - Patient Status Disposition: Home, Self-Care Condition: Good Functional capacity at discharge: independent ambulation Overall status at discharge: patient is progressing back to baseline - Discharge Instructions Follow Up With: NONE,PCP [Primary Care Provider] - Marcos Lang MD [Partnered Physician] - (patient already has scheduled f/ u ) - Diet and Activity Activity: increase activity as tolerated Diet: advance to your usual diet - Hospital Course Hospital course: Ms. Kauffman is a 56 year old female who was brought in for observation for left flank pain with some debris at left UPJ. pain improved and repeat ct showed stone had passed. patient without fever. - Time Spent with Patient Total time spent providing and/or coordinating discharge services: Exam Initial Vital Signs Temp Pulse Resp BP Pulse Ox 97.6 F 94 16 153/97 99 08/22/17 15:28 08/22/17 15:28 08/22/17 15:28 08/22/17 15:28 08/22/17 15:28 - General physical appearance Present: well developed - Cardiovascular Cardiovascular exam IM: RRR - Abdomen Abdomen: Present: soft - VTE Documentation of Mechanical Device: Intermittent pneumatic compression device
[2017-08-24] MEDS: cefTRIAXone 1,000 MG in Water for inj. (sterile) 10 ML IVP SCH (07:56)
[2017-08-24 08:15] VITALS: BP 107/80
== END 2017-08-24 09:08 | disposition home or self-care (01) ==
LOC: 3ANU 15:27 → EMEROO 15:27 → 3ANU 18:45
PROVIDERS: ADMIT Urology; ATTEND Urology

== ENCOUNTER 2021-12-16 13:32 | Observation (INO) ==
[2021-12-16] MEDS ORDERED: Ondansetron 4 MG/2 ML VIAL IVP PRN ×2 (14:18→15:58)
[2021-12-16] MEDS ORDERED: 0.9 % Sodium Chloride 1,000 ML IV ONE (14:18)
[2021-12-16] MEDS ORDERED: Morphine Sulfate 2 MG/ML SYRINGE IVP ONE (14:18)
[2021-12-16] MEDS ORDERED: Ketorolac 30 MG/ML VIAL IVP ONE (14:18)
[2021-12-16 14:19] LABS: Basophils % 0.2 %; Eosinophils # 0.1 K/mcL (0.0-0.6); Eosinophils % 0.7 %; Hemoglobin 10.4 g/dL (11.5-15.4); Immature Granulocytes % 0.8 % (0-4); Lymphocytes # 1.4 K/mcL (0.6-4.6); Lymphocytes % 16.2 %; Mean Corpuscular HGB Conc 32.5 g/dL (31.6-35.5); Mean Corpuscular Hemoglobin 28.9 pg (28.0-33.3); Mean Corpuscular Volume 88.9 fL (83.0-100.0); Mean Platelet Volume 10.3 fL (9.4-12.4); Monocytes # 0.5 K/mcL (0.0-1.3); Monocytes % 6.1 %; Neutrophils # 6.3 K/mcL (1.6-8.9); Platelet Count 173 K/mcL (140-400); Red Cell Distribution Width 13.9 % (11.5-14.5); White Blood Count 8.4 K/mcL (4.3-11.1)
[2021-12-16 14:21] LABS: Bilirubin,Urine Negative (Negative); Blood,Urine Negative (Negative); Clarity,Urine Turbid (Clear); Color,Urine Light-Yellow (Yellow); Glucose,Urine (UA) 100 mg/dL (Normal); Ketones,Urine Negative (Negative); Leukocyte Esterase,Urine Negative (Negative); Nitrite,Urine Negative (Negative); PH,Urine 7.5 pH Units (5.0-8.0); Protein,Urine Trace mg/dL (Neg-Trace); Specific Gravity,Urine 1.018 (1.010-1.025); Urobilinogen,Urine Normal (Normal)
[2021-12-16 14:32] LABS: Amorphous Sediment,Urine Moderate per hpf (None-Few); RBC,Urine 0-3 per hpf (0-3)
[2021-12-16 14:33] LABS: Squamous Epithelial Cell,Urine Few per hpf (None-Few); WBC,Urine 0-3 per hpf (0-3)
[2021-12-16 14:39] LABS: Alanine Aminotransferase 42 Units/L (7-52); Albumin 4.2 g/dL (3.5-5.7); Albumin/Globulin Ratio 1.4 (1.1-2.2); Alkaline Phosphatase 91 Units/L (34-104); Aspartate Amino Transferase 42 Units/L (13-39); BUN/Creatinine Ratio 17 (6-26); Bilirubin,Direct 0.1 mg/dL (0.0-0.2); Bilirubin,Indirect 0.5 mg/dL (0.0-1.0); Bilirubin,Total 0.6 mg/dL (0.3-1.0); Blood Urea Nitrogen 16 mg/dL (8-23); Calcium 9.7 mg/dL (8.6-10.3); Carbon Dioxide 29 mEq/L (23-29); Chloride 98 mEq/L (98-107); Globulin 3.1 g/dL (2.4-3.5); Glucose 168 mg/dL (70-105); Lipase 23 Units/L (11-82); Osmolality,Calculated 287 (280-300); Potassium 3.8 mEq/L (3.5-5.1); Sodium 136 mEq/L (136-145); Total Protein 7.3 g/dL (6.4-8.9); eGFR For African Americans > 60 (> 60); eGFR For Non-African Americans 60 (> 60)
[2021-12-16] MEDS ORDERED: cefTRIAXone 1,000 MG in 0.9 % Sodium Chloride Mini Bag 100 ML IVPB ONE (15:34)
[2021-12-16] MEDS ORDERED: Naloxone 0.4 MG/ML INJ IVP PRN (15:58)
[2021-12-16] MEDS ORDERED: *HR* Dextrose 50 % in Water (Syg) 50 ML SYRINGE IVP PRN (16:01)
[2021-12-16] MEDS ORDERED: D5% in Water 1,000 ML IVC PRN (16:01)
[2021-12-16] MEDS ORDERED: Dextrose 4 GM Chewable Tablets PO PRN ×2 (16:01)
[2021-12-16] MEDS ORDERED: Morphine Sulfate 2 MG/ML SYRINGE IVP PRN (16:02)
[2021-12-16] MEDS ORDERED: Ketorolac 30 MG/ML VIAL IVP PRN (16:09)
[2021-12-16] MEDS: amLODIPine 5 MG TABLET PO SCH (17:18)
[2021-12-16] MEDS: 0.9 % Sodium Chloride 1,000 ML IVC SCH (17:37)
[2021-12-16] MEDS: *HR* Heparin 5,000 UNIT/ML VIAL SQ SCH (18:10)
[2021-12-17 02:26] LABS: Basophils % 0.1 %; Eosinophils # 0.2 K/mcL (0.0-0.6); Eosinophils % 2.1 %; Hematocrit 34.5 % (35.3-44.9); Hemoglobin 11.1 g/dL (11.5-15.4); Immature Granulocytes % 0.6 % (0-4); Lymphocytes # 2.7 K/mcL (0.6-4.6); Lymphocytes % 33.3 %; Mean Corpuscular HGB Conc 32.2 g/dL (31.6-35.5); Mean Corpuscular Hemoglobin 28.3 pg (28.0-33.3); Mean Platelet Volume 10.5 fL (9.4-12.4); Monocytes # 0.5 K/mcL (0.0-1.3); Monocytes % 6.5 %; Neutrophils # 4.6 K/mcL (1.6-8.9); Platelet Count 167 K/mcL (140-400); Red Blood Count 3.92 M/mcL (3.82-4.97); Red Cell Distribution Width 14.3 % (11.5-14.5); Segmented Neutrophils % 57.4 %
[2021-12-17 02:46] LABS: BUN/Creatinine Ratio 19 (6-26); Blood Urea Nitrogen 19 mg/dL (8-23); Calcium 8.7 mg/dL (8.6-10.3); Carbon Dioxide 26 mEq/L (23-29); Chloride 104 mEq/L (98-107); Glucose 151 mg/dL (70-105); Magnesium 1.8 mg/dL (1.6-2.6); Osmolality,Calculated 289 (280-300); Phosphorous 3.4 mg/dL (2.7-4.5); Potassium 3.7 mEq/L (3.5-5.1); Sodium 137 mEq/L (136-145); eGFR For African Americans > 60 (> 60); eGFR For Non-African Americans 55 (> 60)
[2021-12-17] MEDS: 0.9 % Sodium Chloride 1,000 ML IVC SCH ×3 (05:38→20:09)
[2021-12-17] MEDS: *HR* Heparin 5,000 UNIT/ML VIAL SQ SCH ×2 (05:39→18:00)
[2021-12-17] MEDS: amLODIPine 5 MG TABLET PO SCH (07:41)
[2021-12-17] MEDS ORDERED: *HR* FentaNYL (PF) 100 MCG/2 ML VIAL IVP PRN (08:00)
[2021-12-17] MEDS ORDERED: cefTRIAXone 1,000 MG in 0.9 % Sodium Chloride 10 ML IVP SCH (09:00)
[2021-12-17] MEDS ORDERED: *HR* FentaNYL (PF) 100 MCG/2 ML VIAL ONE (12:52)
[2021-12-17] MEDS ORDERED: *HR* Propofol 200 MG/20 ML VIAL IVP ONE (12:52)
[2021-12-17] MEDS ORDERED: Ondansetron 4 MG/2 ML VIAL ONE (12:54)
[2021-12-17] MEDS ORDERED: Lidocaine -MPF 2% 2 ML VIAL ONE (12:54)
[2021-12-17] MEDS ORDERED: Isovue-300 50ML VIAL ONE (13:13)
[2021-12-17] MEDS ORDERED: Ketorolac 30 MG/ML VIAL IVP PRN (14:19)
[2021-12-17] MEDS ORDERED: Ondansetron 4 MG/2 ML VIAL IVP PRN (14:19)
[2021-12-17] MEDS ORDERED: Dextrose 4 GM Chewable Tablets PO PRN ×2 (14:19)
[2021-12-17] MEDS ORDERED: Naloxone 0.4 MG/ML INJ IVP PRN (14:19)
[2021-12-17] MEDS ORDERED: *HR* Dextrose 50 % in Water (Syg) 50 ML SYRINGE IVP PRN (14:19)
[2021-12-17] MEDS ORDERED: Morphine Sulfate 2 MG/ML SYRINGE IVP PRN (14:19)
[2021-12-17] MEDS ORDERED: D5% in Water 1,000 ML IVC PRN (14:19)
[2021-12-17] MEDS: Insulin LISPRO 300 UNITS/3 ML VIAL SUBQ SCH (17:59)
[2021-12-17] MEDS ORDERED: Insulin LISPRO 300 UNITS/3 ML VIAL SUBQ SCH (21:00)
[2021-12-18] MEDS: 0.9 % Sodium Chloride 1,000 ML IVC SCH (03:01)
[2021-12-18] MEDS: *HR* Heparin 5,000 UNIT/ML VIAL SQ SCH (05:24)
[2021-12-18 06:54] VITALS: BP 114/72; PULSE 81; TEMP 97.9; O2SAT 94
[2021-12-18] MEDS: Insulin LISPRO 300 UNITS/3 ML VIAL SUBQ SCH (08:07)
[2021-12-18] MEDS ORDERED: cefTRIAXone 1,000 MG in 0.9 % Sodium Chloride 10 ML IVP SCH (09:00)
[2021-12-18] MEDS ORDERED: amLODIPine 5 MG TABLET PO SCH (09:00)
== END 2021-12-18 11:47 | disposition home or self-care (01) ==
LOC: EMEROOARM 13:32 → 3ANU 13:32 → SUATTDRO 15:50 → 3ANU 16:48
PROVIDERS: ADMIT Internal Medicine; ATTEND Student in an Organized Health Care Education/Training Program